=== PATIENT | female | born 1965 | race Caucasian/White ===

== ENCOUNTER → 2018-05-23 | Outpatient (CLI) | payer BC ==
--- NOTE | 2018-05-26 14:59 | MM ---
Reason for exam: screening (asymptomatic). Last mammogram was performed 9 years and 6 months ago. Physical Findings: A clinical breast exam by your physician is recommended on an annual basis and results should be correlated with mammographic findings. MG Screening Mammo w CAD Bilateral CC and MLO view(s) were taken. Prior study comparison: November 09, 2008, bilateral digital screening mammogram. No significant changes when compared with prior studies. ASSESSMENT: Benign, BI-RAD 2 RECOMMENDATION: Routine screening mammogram of both breasts in 1 year.
== END | disposition home or self-care (01) ==
LOC: RADMAMWWP 08:03
PROVIDERS: ATTEND Family Medicine
DX: Z12.31 Encounter for screening mammogram for malignant neoplasm of breast (principal)
CPT/HCPCS: 77067

== ENCOUNTER → 2018-06-19 | Outpatient (CLI) | payer BC ==
--- NOTE | 2018-06-19 12:10 | CONS ---
CONSULTATION DATE OF SERVICE: 06/19/2019 This 53-year-old lady had been evaluated in the sleep center for possible obstructive sleep apnea-hypopnea syndrome. HISTORY OF PRESENT ILLNESS/SLEEP WAKE EVALUATION: Patient usual sleep schedule from 11 p.m. to 6:30 a.m. She goes out of bed around 6:45 a.m. No problem with falling asleep although she has TV set in bedroom. She sleeps with her with snoring and witnessed episodes of stopped breathing during the sleep. She wakes up with grinding teeth, symptoms of restless legs. She wakes up from sleep 2 times with nocturia. No history of hypnagogic hallucinations, sleep paralysis or cataplexy. Recently patient lost about 15 pounds of weight and at that time her snoring is less and she feels better during the day, but she still continued to feel some sleepiness. [place] Sleepiness Scale increased to 14 and she has taken nap at 7 p.m. PAST MEDICAL HISTORY: Positive for hypothyroidism, low vitamin D level, allergy. PAST SURGICAL HISTORY: Right knee ACL, surgery in 1996. MEDICATIONS: Levothyroxine and vitamin D. SOCIAL HISTORY: Negative for smoking. Alcohol consumption rarely. FAMILY HISTORY: Hypertension, heart problems, stroke, sinus headaches, sleep apnea, snoring, cancer, liver problems, diabetes, thyroid problems, restless legs. REVIEW OF SYSTEMS: Awakenings from sleep, sleepiness during the day. PHYSICAL EXAMINATION: GENERAL: A 53-year-old lady without distress. VITAL SIGNS: BP 149/79, HR 67, RR 16, height 5-1/2, weight 162.2, BMI 31.1, temperature 98.1, oxygen saturation room air 97%. HEENT: PERRLA, EOMI. Oropharynx moderately low position of soft palate. Some restriction of nasal breathing bilaterally. NECK: Supple, no JVD. Thyroid is not palpable. LUNGS: Clear to percussion and to auscultation. Good air exchange. No wheezing or rhonchi. HEART: S1, S2 regular. No murmurs, gallops, or rubs. ABDOMEN: Slightly obese. EXTREMITIES: No clubbing or cyanosis. RECONCILIATION ANALYST: Awake, alert, and oriented X3. Cranial nerves 2 to 7 intact. There is no fasciculation or atrophy. noted. No focal deficits observed. IMPRESSION: 1. Snoring, witnessed episodes of stopped breathing during the sleep, restriction of nasal breathing, sleepiness, possible obstructive sleep apnea-hypopnea syndrome. 2. Excessive daytime sleepiness. [place] Sleepiness Scale increased to 14. Differential diagnosis should include hypersomnia. 3. Obesity, body mass index 31.1. 4. Hypothyroidism. 5. Low vitamin D level. 6. Status post section x3. 7. Status post right knee surgery for ACL problems in 1996. 8. Allergy. 9. Some restriction of nasal breathing. PLAN: 1. Home sleep apnea test for evaluation of patient's breathing during the sleep. 2. Following plan after reviewing results of home sleep apnea test. If sleep study will be negative and the patient will continue to have symptoms of excessive daytime sleepiness, we may consider polysomnogram with following multiple sleep latency test. 3. Continue losing weight. 4. Sleep hygiene with regular time in bed for at least 7.5 hours. 5. No driving if feeling any sleepiness. Thank you very much for referring this patient for consultation. Sincerely, Dennis Shipman MD, PhD, FAASM Diplomat of [place] [employer] [place] [employer] Waiter/Waitress Room Service of [facility] [place] MMODL / IJN: [id number] /
== END | disposition home or self-care (01) ==
LOC: SLEEP 10:09
PROVIDERS: ATTEND Internal Medicine
DX: G47.30 Sleep apnea, unspecified (principal); G47.63 Sleep related bruxism; G25.81 Restless legs syndrome; R35.1 Nocturia; E66.9 Obesity, unspecified; E03.9 Hypothyroidism, unspecified; E88.89 Other specified metabolic disorders; Z91.048 Other nonmedicinal substance allergy status; Z68.31 Body mass index [BMI] 31.0-31.9, adult; Z98.890 Other specified postprocedural states; Z79.899 Other long term (current) drug therapy
CPT/HCPCS: 99211

== ENCOUNTER 2019-03-20 21:21 | Emergency (ER) | payer BC ==
[2019-03-20] MEDS ORDERED: SODIUM CHLORIDE 0.9% 500 ML 500 ML IV ONE (21:28)
[2019-03-20] MEDS ORDERED: MORPHINE SULFATE 2 MG/ML SYRINGE IVP STA (21:28)
[2019-03-20 21:57] LABS: Basophils % (A) 1 %; Eosinophils # (A) 0.1 k/uL (0-0.7); Eosinophils % (A) 2 %; HCT 35.8 % (34.0-46.0); HGB 11.2 gm/dL (11.4-16.0); Hypochromasia Slight; Lymphocytes % (A) 35 %; MCH 24.5 pg (25.0-35.0); MCHC 31.4 g/dL (31.0-37.0); MCV 78.1 fL (80.0-100.0); Mean Platelet Volume 7.5; Microcytosis Slight; Monocytes # (A) 0.4 k/uL (0-1.0); Monocytes % (A) 7 %; Neutrophils # (A) 2.9 k/uL (1.3-7.7); Neutrophils % (A) 51 %; Platelet Count 369 k/uL (150-450); RBC 4.59 m/uL (3.80-5.40); RDW 15.5 % (11.5-15.5); WBC 5.7 k/uL (3.8-10.6)
[2019-03-20 22:05] LABS: ALT 27 U/L (9-52); AST 22 U/L (14-36); Albumin 4.4 g/dL (3.5-5.0); Alkaline Phosphatase 102 U/L (38-126); Amylase 78 U/L (30-110); Anion Gap 9 mmol/L; Blood Urea Nitrogen 14 mg/dL (7-17); Calcium 9.7 mg/dL (8.4-10.2); Carbon Dioxide 25 mmol/L (22-30); Chloride 106 mmol/L (98-107); Glucose 83 mg/dL (74-99); Lipase 248 U/L (23-300); Potassium 4.1 mmol/L (3.5-5.1); Sodium 140 mmol/L (137-145); Total Bilirubin 0.5 mg/dL (0.2-1.3); Total Protein 8.1 g/dL (6.3-8.2)
[2019-03-20 22:08] LABS: Appearance,Urine Clear (Clear); Bilirubin,Urine Negative (Negative); Blood,Urine Negative (Negative); Color,Urine Light Yellow; Glucose,Urine (UA) Negative (Negative); Ketones,Urine Negative (Negative); Leukocyte Esterase,Urine Negative (Negative); Nitrite,Urine Negative (Negative); PH, Urine 5.5 (5.0-8.0); Protein,Urine Negative (Negative); Specific Gravity,Urine 1.006 (1.001-1.035); Urobilinogen,Urine <2.0 mg/dL (<2.0)
--- NOTE | 2019-03-20 22:49 | CT ---
EXAM: CT Abdomen and Pelvis With Intravenous Contrast CLINICAL HISTORY: ITS.REASON CT Reason: Pain TECHNIQUE: Axial computed tomography images of the abdomen and pelvis with intravenous contrast. CTDI is 20 mGy and DLP is 862 mGy-cm. This CT exam was performed using one or more of the following dose reduction techniques: automated exposure control, adjustment of the mA and/or kV according to patient size, and/or use of iterative reconstruction technique. COMPARISON: No relevant prior studies available. FINDINGS: Lung bases: No mass. No consolidation. ABDOMEN: Liver: Unremarkable. Gallbladder and bile ducts: Unremarkable. Pancreas: Unremarkable. Spleen: Unremarkable. Adrenals: Unremarkable. Kidneys and ureters: No hydronephrosis. Stomach and bowel: No bowel obstruction or bowel wall thickening. PELVIS: Appendix: No evidence of appendicitis. Bladder: Unremarkable. Reproductive: Enlarged and heterogeneous in appearance with a 5 cm exophytic mass. ABDOMEN and PELVIS: Intraperitoneal space: Unremarkable. Bones/joints: No acute fractures. Soft tissues: Unremarkable. Vasculature: No abdominal aortic aneurysm. Lymph nodes: No enlarged lymph nodes. IMPRESSION: No acute intra-abdominal process. Enlarged and heterogeneous uterus with exophytic 5 cm fibroid.
--- NOTE | 2019-03-20 23:32 | ED ---
Abdominal Pain HPI - General Source: patient Mode of arrival: ambulatory Limitations: no limitations <Lizy Vizcarra - Last Filed: 03/20/19 23:21> <Elizabeth Buchanan - Last Filed: 03/21/19 00:42> - General Chief Complaint: Abdominal Pain Stated Complaint: ABd Pain Time Seen by Provider: 03/20/19 21:28 - History of Present Illness Initial Comments: 54-year-old female presenting today for chief complaint of left lower quadrant pain 2 days. Patient states she has had intermittent pain in the left lower quadrant. Denies radiation. She states it usually began shortly after eating. Patient describes the pain as sharp and aching. Lasting for 20 minutes or more at a time. Patient states pain was more persistent today and presented for evaluation. Patient denies lower extremity pain, back pain dysuria urgency frequency. Patient states she still has menstruation monthly, last 03/12/19. Patient denies any numbness tingling or loss sensation of the lower extremities she denies any fever or chills night sweats diarrhea vomiting. Denies any melena hematochezia. Patient denies any abnormal vaginal bleeding. She denies any abnormal vaginal discharge. Patient denies any upper abdominal pain chest pain dyspnea dysuria or exertion nausea. Patient denies any recent weight loss. Remaining ROS (-). Upon arrival patient appears well. Nontoxic. Mild elevation of BP remaining VS within acceptable limits. (Lizy Vizcarra) - Related Data Home Medications Medication Instructions Recorded Confirmed Levothyroxine Sodium 137 mcg PO DAILY 03/20/19 03/20/19 Allergies Allergy/AdvReac Type Severity Reaction Status Date / Time No Known Allergies Allergy Verified 03/20/19 21:31 Review of Systems ROS Other: All systems not noted in ROS Statement are negative. <Lizy Vizcarra - Last Filed: 03/20/19 23:21> ROS Other: All systems not noted in ROS Statement are negative. <Elizabeth Buchanan - Last Filed: 03/21/19 00:42> ROS Statement: Those systems with pertinent positive or pertinent negative responses have been documented in the HPI. Past Medical History Past Medical History: No Reported History, Thyroid Disorder History of Any Multi-Drug Resistant Organisms: None Reported Past Surgical History: Section, Orthopedic Surgery Past Psychological History: No Psychological Hx Reported Smoking Status: Never smoker Past Alcohol Use History: Rare Past Drug Use History: None Reported <Lizy Vizcarra - Last Filed: 03/20/19 23:21> General Exam Limitations: no limitations <Lizy Vizcarra - Last Filed: 03/20/19 23:21> - General Exam Comments Initial Comments: General: The patient is awake and alert, in no distress, and does not appear acutely ill. Eye: +3 mm pupils are equal, round and reactive to light, extra-ocular move ments are intact. No nystagmus. There is normal conjunctiva bilaterally. No signs of icterus. Ears, nose, mouth and throat: There are moist mucous membranes and no oral lesions. Neck: The neck is supple, there is no tenderness or JVD. Cardiovascular: There is a regular rate and rhythm. No murmur, rub or gallop is appreciated. Respiratory: Lungs are clear to auscultation, respirations are non-labored, breath sounds are equal. No wheezes, stridor, rales, or rhonchi. Gastrointestinal: No noted diaphoresis, jaundice, pallor, protecting postures or squirming. Symmetrical pigmentation of abdomen without signs of inflammation, [scars], or striae. Umbilicus mildline, inverted without swelling. No dilated veins. Abdomen contour obese, no noted abdominal distention. No visible masses. No peristalsis, aortic pulsations, or ventral hernia. Bowel sounds audible in all 4 quadrants, unremarkable. No friction rubs or venous hums. No epigastic, hepatic or abdominal bruits. Patient tender to the left lower quadrant to both light and deep palpation. No distinct palpable masses. No rigidity no guarding no rebound tenderness. Liver edge, not palpable. Spleen edge, right and left kidney not palpable. Superior bladder margin non-tender. Special Testing: Negative [place], Rovsing, McBurney, Francis, cutaneous hyperesthesia. Iliopsoas and obturator tests negative bilaterally. Negative Heel Jar test. Digital rectal exam deferred. Negative ordonez turners or cullens sign Musculoskeletal: Normal ROM, no tenderness. Strength 5/5. Sensation intact. Pulses equal bilaterally 2+. Neurological: A&O x 3. CN II-XII intact, There are no obvious motor or sensory deficits. Coordination appears grossly intact. Speech is normal. Skin: Skin is warm and dry and no rashes or lesions are noted. Psychiatric: Cooperative, appropriate mood & affect, normal judgment. (Lizy Vizcarra) Course Vital Signs 03/20/19 21:22 Temperature 97.8 F Pulse Rate 70 Respiratory 18 Rate Blood Pressure 188/86 O2 Sat by Pulse 100 Oximetry Medical Decision Making - Lab Data Result diagrams: 03/20/19 21:43 03/20/19 21:43 <Lizy Vizcarra - Last Filed: 03/20/19 23:21> - Lab Data Result diagrams: 03/20/19 21:43 03/20/19 21:43 <Elizabeth Buchanan - Last Filed: 03/21/19 00:42> - Medical Decision Making Appearing 54-year-old female presenting today for chief complaint of left lower abdominal pain. Patient states this has been ongoing intermittently for the past 2 days. Patient recently completed menses 2018. Patient is unsure if this feels like pelvic or abdominal pain. Patient states it does have a pattern with eating. Conservative for diverticulitis CT with contrast of the abdomen a nd pelvis is obtained revealing no acute abnormality. There was noted exophytic uterine fibroid 5 cm. At this time repeat abdominal exam was performed. Pain still present. Improvement with morphine. Pt appears more comfortable. Ultrasound was ordered. I discussed the case attending provider Dr. Buchanan as I'm signing outpatient upon shift change. She is aware of presenting illness, current exam findings, and CT findings will continue care. (Lizy Vizcarra) Patient care was signed out to be by Lizy VALENTIN - she had presented with left lower quadrant abdominal pain computed tomography scan revealed an old exophytic fibroid so a ultrasound was ordered at the time of sign out ultrasound was pending. Ultrasound again confirmed a 5.7 cm exophytic fibroid. (Elizabeth Buchanan) - Lab Data Lab Results 03/20/19 03/20/19 03/20/19 Range/Units 21:43 21:43 21:43 WBC 5.7 (3.8-10.6) k/uL RBC 4.59 (3.80-5.40) m/uL Hgb 11.2 L (11.4-16.0) gm/dL Hct 35.8 (34.0-46.0) % MCV 78.1 L (80.0-100.0) fL MCH 24.5 L (25.0-35.0) pg MCHC 31.4 (31.0-37.0) g/dL RDW 15.5 (11.5-15.5) % Plt Count 369 (150-450) k/uL Neutrophils % 51 % Lymphocytes % 35 % Monocytes % 7 % Eosinophils % 2 % Basophils % 1 % Neutrophils # 2.9 (1.3-7.7) k/uL Lymphocytes # 2.0 (1.0-4.8) k/uL Monocytes # 0.4 (0-1.0) k/uL Eosinophils # 0.1 (0-0.7) k/uL Basophils # 0.0 (0-0.2) k/uL Hypochromasia Slight Microcytosis Slight Sodium 140 (137-145) mmol/L Potassium 4.1 (3.5-5.1) mmol/L Chloride 106 (98-107) mmol/L Carbon Dioxide 25 (22-30) mmol/L Anion Gap 9 mmol/L BUN 14 (7-17) mg/dL Creatinine 0.68 (0.52-1.04) mg/dL Est GFR (CKD-EPI)AfAm >90 (>60 ml/min/1.73 sqM) Est GFR (CKD-EPI)NonAf >90 (>60 ml/min/1.73 sqM) Glucose 83 (74-99) mg/dL Calcium 9.7 (8.4-10.2) mg/dL Total Bilirubin 0.5 (0.2-1.3) mg/dL AST 22 (14-36) U/L ALT 27 (9-52) U/L Alkaline Phosphatase 102 (38-126) U/L Total Protein 8.1 (6.3-8.2) g/dL Albumin 4.4 (3.5-5.0) g/dL Amylase 78 (30-110) U/L Lipase 248 (23-300) U/L Urine Color Light Yellow Urine Appearance Clear (Clear) Urine pH 5.5 (5.0-8.0) Ur Specific [place] 1.006 (1.001-1.035) Urine Protein Negative (Negative) Urine Glucose (UA) Negative (Negative) Urine Ketones Negative (Negative) Urine Blood Negative (Negative) Urine Nitrite Negative (Negative) Urine Bilirubin Negative (Negative) Urine Urobilinogen <2.0 (<2.0) mg/dL Ur Leukocyte Esterase Negative (Negative) Disposition <Lizy Vizcarra - Last Filed: 03/20/19 23:21> Is patient prescribed a controlled substance at d/c from ED?: No <Elizabeth Buchanan P - Last Filed: 03/21/19 00:42> Clinical Impression: Uterine fibroid Disposition: HOME SELF-CARE Condition: Stable Instructions (If sedation given, give patient instructions): Pelvic Pain in Women (ED) Referrals: Jessica Philip MD [Primary Care Provider] - 1-2 days Janet Morin MD [STAFF PHYSICIAN] - 1-2 days
--- NOTE | 2019-03-21 00:15 | US ---
EXAM: US Pelvis, Transvaginal CLINICAL HISTORY: ITS.REASON US Reason: Pain TECHNIQUE: Real-time transvaginal pelvic ultrasound (complete) with image documentation. Transvaginal imaging was used for better evaluation of the endometrium and adnexa. COMPARISON: CT abdomen 03/20/19 FINDINGS: Uterus/cervix: Multiple fibroids (incompletely characterized), largest measuring up to 5.7 cm in the upper right portion. Multiple nabothian cysts. Normal endometrial stripe thickness. Right ovary: No mass. Normal blood flow. Left ovary: No mass. Normal blood flow. Free fluid: No free fluid. IMPRESSION: Fibroid uterus with exophytic 5.7 cm fibroid as seen on the CT.
[2019-03-21 01:02] VITALS: BP 136/72; PULSE 63; RESP 16; TEMP 98.5
== END 2019-03-21 01:02 | disposition home or self-care (01) ==
LOC: EC 21:21
DX: D25.9 Leiomyoma of uterus, unspecified (principal); R03.0 Elevated blood-pressure reading, without diagnosis of hypertension; E07.9 Disorder of thyroid, unspecified; Z79.890 Hormone replacement therapy
CPT/HCPCS: 36415; 80053; 82150; 83690; 85025; 81003; 93975; 76856; 76830; 74177; 99284; 96374; 96361; J2270; Q9967

== ENCOUNTER → 2019-08-13 | Outpatient (CLI) | payer BC ==
--- NOTE | 2019-08-13 20:08 | PN ---
PROGRESS NOTE DATE OF SERVICE: 08/13/2019 54-year-old lady has been followed in Sleep Center for treatment of obstructive sleep apnea-hypopnea syndrome. Recently patient had home sleep apnea test which showed apnea-hypopnea index 49.1 with oxygen desaturation to 69%. The patient had CPAP titration and her respiration was normalized on CPAP. Subsequently, she received CPAP unit today. Today her visit after she received CPAP equipment. The patient is able to use CPAP equipment every night without significant problems related to mask fitting, pressure and humidification. [place] Sleepiness Scale today is 8. I checked her CPAP unit, range of the pressure 5-10 with average pressure 9.7 cm of water usage is 23/30 nights and 22/30 nights for more than 4 hours with average usage 5.9 hours. Leak is 6 L/minute, which is absolutely normal. Apnea-hypopnea index reading only 1.9, which is perfect. MEDICATIONS: Levothyroxine, vitamin D. PHYSICAL EXAM: Patient in no distress. BP 115/67, HR 77, RR 16, weight 171, temp 97.8. Oropharynx: Low position of soft palate. Mallampati 4. Neck Supple, no JVD. Thyroid is not palpable. LUNGS Clear to percussion and to auscultation. Good air exchange. No wheezing or rhonchi. HEART S1, S2 regular. No murmurs, gallops, or rubs. ABDOMEN: Slightly obese. Soft and nontender. Bowel sounds are present. No organomegaly appreciated. EXTREMITIES No clubbing or cyanosis. BREASTFEEDING PROGRAM COORDINATOR Awake, alert, and oriented X3. Cranial nerves 2 to 7 intact. There is no fasciculation or atrophy. noted. No focal deficits observed. IMPRESSION: 1. Severe obstructive sleep apnea-hypopnea syndrome; apnea-hypopnea index 49.1 with oxygen desaturation to 69% on full control with CPAP. The patient demonstrated great compliance with treatment benefitting from treatment. 2. Obesity. 3. Hypothyroidism. 4. Low level of vitamin D. 5. Status post . 6. Status post right knee surgery for ACL in 1996. 7. Allergy. 8. Restriction of nasal breathing. PLAN: 1. Patient will continue to use CPAP equipment every night for the whole night. 2. Watching and losing weight. 3. Sleep hygiene with regular time in bed for at least 7-1/2 hours. 4. No driving if feeling sleepiness. 5. I will maintain all necessary prescriptions for CPAP supplies including mask, tube filters. Presently patient on Airfit N30 and has heated tube. Thank you very much for allowing me to participate in management of your patient. Sincerely, Dennis Shipman MD, PhD, FAASM Diplomat of [place] [employer] [place] [employer] Facsimile Operator of [facility] [place] MMODL / IJN: [id number] /
== END | disposition home or self-care (01) ==
LOC: SLEEP 15:13
PROVIDERS: ATTEND Internal Medicine
DX: G47.33 Obstructive sleep apnea (adult) (pediatric) (principal); E66.9 Obesity, unspecified; E03.9 Hypothyroidism, unspecified; E55.9 Vitamin D deficiency, unspecified; Z96.651 Presence of right artificial knee joint; Z98.890 Other specified postprocedural states; T78.40XA Allergy, unspecified, initial encounter; J98.8 Other specified respiratory disorders; Z99.89 Dependence on other enabling machines and devices; Z79.899 Other long term (current) drug therapy

== ENCOUNTER → 2021-03-16 | Outpatient (CLI) | payer BC ==
--- NOTE | 2021-03-20 13:59 | MM ---
Reason for exam: screening (asymptomatic). Last mammogram was performed 2 years and 10 months ago. Physical Findings: A clinical breast exam by your physician is recommended on an annual basis and results should be correlated with mammographic findings. MG 3D Screening Mammo W/Cad Bilateral CC and MLO view(s) were taken. Prior study comparison: May 23, 2018, bilateral MG screening mammo w CAD. The breast tissue is heterogeneously dense. This may lower the sensitivity of mammography. No significant changes when compared with prior studies. ASSESSMENT: Negative, BI-RAD 1 RECOMMENDATION: Routine screening mammogram of both breasts in 1 year. Patient should continue monthly self breast exams. A negative report should not preclude additional follow up of suspicious palpable abnormalities.
== END | disposition home or self-care (01) ==
LOC: RADMAMWWP 13:31
PROVIDERS: ATTEND Family Medicine
DX: Z12.31 Encounter for screening mammogram for malignant neoplasm of breast (principal)
CPT/HCPCS: 77063; 77067

== ENCOUNTER 2021-12-14 08:53 | Day surgery (SDC) | payer BC ==
[2021-12-12 10:22] VITALS: BMI 34.3
[~2021-12-14 08:53] MED LIST: LACTATED RINGERS 1,000 ML IV SCH; LIDOCAINE 1% (10MG/ML) FOR IV START INTRADERMA PRN
[2021-12-14 09:24] VITALS: TEMP 97.6
[2021-12-14] MEDS ORDERED: ONDANSETRON 4 MG/2 ML VIAL ONE (09:38)
[2021-12-14] MEDS ORDERED: ONDANSETRON 4 MG/2 ML VIAL IVP ONE (09:45)
[2021-12-14] MEDS ORDERED: PROPOFOL 10 MG/ML 20 ML VIAL IV ONE (10:25)
[2021-12-14] MEDS ORDERED: LIDOCAINE 1% INJ 10MG/ML (20 ML MDV) ONE (10:25)
--- NOTE | 2021-12-14 10:28 | P.GSHP ---
History of Present Illness H&P Date: 12/14/21 This is a 56-year-old female who had a recent positivecolon Guard test. Patient presents today for colonoscopy Past Medical History Past Medical History: Thyroid Disorder Additional Past Medical History / Comment(s): covid 10/22. pos.cologard History of Any Multi-Drug Resistant Organisms: None Reported Past Surgical History: Section, Hysterectomy, Orthopedic Surgery Additional Past Surgical History / Comment(s): arthroscopy rt knee. c/s x3 Past Anesthesia/Blood Transfusion Reactions: Motion Sickness, Postoperative Nausea & Vomiting (PONV) Smoking Status: Never smoker Medications and Allergies Home Medications Medication Instructions Recorded Confirmed Type Levothyroxine Sodium 137 mcg PO DAILY 03/20/19 12/14/21 History Allergies Allergy/AdvReac Type Severity Reaction Status Date / Time No Known Allergies Allergy Verified 12/14/21 09:15 Surgical - Exam Vital Signs Temp Pulse Resp BP Pulse Ox 97.6 F 97 16 164/79 97 12/14/21 09:23 12/14/21 09:23 12/14/21 09:23 12/14/21 09:23 12/14/21 09:23 - General well developed, well nourished, no distress - Eyes PERRL - ENT normal pinna - Neck no masses - Respiratory normal expansion - Cardiovascular Rhythm: regular - Abdomen Abdomen: soft, non tender Assessment and Plan Assessment: Positivecolon Guard test. We'll perform colonoscopy
--- NOTE | 2021-12-14 10:39 | P.OP ---
Date of Procedure: 12/14/21 Preoperative Diagnosis: Positivecolon . Guard test Postoperative Diagnosis: Normal colonoscopy Procedure(s) Performed: Colonoscopy Anesthesia: MAC Surgeon: Stephan Hung Pathology: none sent Condition: stable Description of Procedure: The patient's placed on the endoscopy table in the lateral position. She received IV sedation. Digital rectal exam was performed. This revealed no abnormalities. Flexible colonoscope was then placed patient anus and passed throughout the entire colon. Ileocecal valve was visualized. The cecum, ascending and transverse colon appeared normal. Descending and sigmoid colon appeared normal. The scope was brought back the rectum this appeared scope was then withdrawn for patient. There were no polyps seen.
[2021-12-14 11:01] VITALS: BP 124/75; PULSE 58; RESP 18
== END 2021-12-14 11:29 | disposition home or self-care (01) ==
LOC: ORWHC2ENDO 08:53
PROVIDERS: ATTEND Surgery
DX: R19.5 Other fecal abnormalities (principal); E07.9 Disorder of thyroid, unspecified; Z86.16 Personal history of COVID-19; Z79.890 Hormone replacement therapy; Z98.891 History of uterine scar from previous surgery; Z90.710 Acquired absence of both cervix and uterus; Z98.890 Other specified postprocedural states
CPT/HCPCS: 45378; J2405; J2001; J2704

== ENCOUNTER → 2022-06-06 | Outpatient (CLI) | payer BC ==
--- NOTE | 2022-06-06 16:55 | P.PN ---
Subjective DATE: 06/06/2022 FOLLOW UP VISIT. Patient with obstructive sleep apnea hypopnea syndrome return to sleep center for follow-up visit. Patient is using PAP equipment every night for the whole night, getting PAP supplies in time. The patient does not have significant problems with the mask, PAP unit and humidification. [place] sleepiness scale is 12. I checked PAP unit. PAP unit pressure 5-10 cm H2O. Usage is 90 % for more then 4 hours, average 5 hours per night. Leak is 17 l/m, which is in acceptable range. Apnea Hypopnea Index is 1.7, which is normal. MEDICATIONS:1. Levothyroxine 130 g once a day During physical exam: GENERAL: A pleasant patient without any distress. VITAL SIGNS: BP 149/87, HR 91, RR 18 , weight 175, temperature 97.6. Height 4 foot 11 inches, body mass index 35.3, oxygen saturation at room air 98% . HEENT: PERRLA, EOMI.low position of soft palate, Mallapati for . NECK: Supple. No JVD. LUNGS: Clear to percussion and to auscultation. Good air exchange. No wheezing or rhonchi. HEART: S1, S2 regular. ABDOMEN: Soft and nontender. Slightly obese EXTREMITIES: No clubbing or cyanosis. RIGHT OF WAY SUPERVISOR: Awake, alert, and oriented x3. No focal deficit. Impressions: 1. Obstructive sleep apnea-hypopnea syndrome. Patient demonstrated great compliance with treatment, benefiting from treatment. 2. Hypothyroidism. 3. History of low vitamin D level. 4. Status post . 5. Status post right knee surgery. 6. ALLERGY. 7. Restriction of nasal breathing. Plan: 1. Continue using PAP equipment every night for the whole night. 2. To change air filter at least 1-2 times per month. 3. PAP unit should stay lower then position of the head. 4. Advised patient to remove all remaining water from humidifier canister daily and make it dry after each usage. Refill canister with fresh distilled water before each usage. 5. Sleep hygiene with regular time in bed for at least 8 hours. 6. Precautions related to driving. No driving if feel any sleepiness. 7. I will maintain prescription for PAP supplies including mask, tube, filters. 8. Follow up visit in 6 months or earlier if patient has any problems. 9. Watching weight. Thank you very much for allowing me to participate in the management of your patient. Dennis Shipman MD, PhD, FAASM. Diplomat of [place] [employer], Sleep Medicine Board by [place] [employer] Business Development of [facility] [place]
== END ==
LOC: SLEEP 16:23
PROVIDERS: ATTEND Internal Medicine
DX: G47.33 Obstructive sleep apnea (adult) (pediatric) (principal); E03.9 Hypothyroidism, unspecified; Z87.59 Personal history of other complications of pregnancy, childbirth and the puerperium; Z98.890 Other specified postprocedural states; T78.40XA Allergy, unspecified, initial encounter; R06.89 Other abnormalities of breathing; Z99.89 Dependence on other enabling machines and devices; Z79.890 Hormone replacement therapy; Z86.39 Personal history of other endocrine, nutritional and metabolic disease
CPT/HCPCS: 99212

== ENCOUNTER → 2022-12-19 | Outpatient (CLI) | payer BC ==
--- NOTE | 2022-12-19 16:54 | P.PN ---
Subjective DATE: 12/19/2022 FOLLOW UP VISIT. Patient with obstructive sleep apnea hypopnea syndrome return to sleep center for follow-up visit. Information from previous visit have been reviewed. Patient is using PAP equipment every night for the whole night, getting PAP supplies in time. The patient does not have significant problems with the mask, PAP unit and humidification. [place] sleepiness scale is increased to 14. I checked information from PAP unit. PAP unit pressure 5-10, average 9.9 cm H2O. Usage is 80% and 70 % for more then 4 hours, average 5.25 hours per night. Leak is 11.4 l/m, which is in acceptable range. Apnea Hypopnea Index is 0.9, which is normal. MEDICATIONS:1. Synthroid 137 g once a day During physical exam: GENERAL: A pleasant patient without any distress. VITAL SIGNS: BP 175/92, HR [], RR 18, weight 175.6, temperature 98.4, oxygen saturation at room air 99 % . HEENT: PERRLA, EOMI.low position of soft palate, Mallapati 4 . NECK: Supple. No JVD. LUNGS: Clear to percussion and to auscultation. Good air exchange. No wheezing or rhonchi. HEART: S1, S2 regular. ABDOMEN: Soft and nontender. Slightly obese EXTREMITIES: No clubbing or cyanosis. COST ACCOUNTING MANAGER: Awake, alert, and oriented x3. No focal deficit. Impressions: 1. Obstructive sleep apnea-hypopnea syndrome. Patient demonstrated great compliance with treatment, benefiting from treatment. 2. Hypothyroidism. 3. ALLERGY. 4. []. status post right knee surgery 5. [].Status post Plan 1. Continue using PAP equipment every night for the whole night. 2. To change air filter at least 1-2 times per month. 3. PAP unit should stay lower then position of the head. 4. Advised patient to remove all remaining water from humidifier canister daily and make it dry after each usage. Refill canister with fresh distilled water before each usage. 5. Sleep hygiene with regular time in bed for at least 8 hours. 6. Precautions related to driving. No driving if feel any sleepiness. 7. I will maintain prescription for PAP supplies including mask, tube, filters. 8. Watching weight. 9. Follow up visit in 6 months or earlier if patient has any problems. Thank you very much for allowing me to participate in the management of your patient. Dennis Shipman MD, PhD, FAASM. Diplomat of [employer], Sleep Medicine Board by [employer] Rug Drying Machine Operator of [facility] [place]
== END ==
LOC: SLEEP 15:58
PROVIDERS: ATTEND Internal Medicine
DX: G47.33 Obstructive sleep apnea (adult) (pediatric) (principal); E03.9 Hypothyroidism, unspecified; Z96.651 Presence of right artificial knee joint; O34.219 Maternal care for unspecified type scar from previous cesarean delivery; Z79.890 Hormone replacement therapy; Z99.89 Dependence on other enabling machines and devices
CPT/HCPCS: 99212

== ENCOUNTER → 2023-07-24 | Outpatient (CLI) | payer BC ==
--- NOTE | 2023-07-24 17:03 | P.PN ---
Subjective DATE: 07/24/2023 FOLLOW UP VISIT. Patient with obstructive sleep apnea hypopnea syndrome return to sleep center for follow-up visit. Information from previous visit have been reviewed. Patient is using PAP equipment every night for the whole night, getting PAP supplies in time. The patient does not have significant problems with the mask, PAP unit and humidification. [place] sleepiness scale is increased to 14. I checked information from PAP unit. PAP unit pressure 5-10, average 9.8 cm H2O. Usage is 83 % for more then 4 hours, average 4.75 hours per night. Leak is 8.9 l/m, which is in acceptable range. Apnea Hypopnea Index is 1.5, which is normal. MEDICATIONS:1. Losartan 50 mg once a day 2. Synthroid 137 micrograms once a day During physical exam: GENERAL: A pleasant patient without any distress. VITAL SIGNS: BP 148/81, HR 73, RR 12 , weight 174.0, temperature 98.1, oxygen saturation at room air 99 % . HEENT: PERRLA, EOMI.low position of soft palate, Mallapati 4 . NECK: Supple. No JVD. LUNGS: Clear to percussion and to auscultation. Good air exchange. No wheezing or rhonchi. HEART: S1, S2 regular. ABDOMEN: Soft and nontender.[] EXTREMITIES: No clubbing or cyanosis. SHOVELER: Awake, alert, and oriented x3. No focal deficit. Impressions: 1. Obstructive sleep apnea-hypopnea syndrome. Patient demonstrated good compliance with treatment, benefiting from treatment. 2. Hypothyroidism. 3. ALLERGY. 4. Status post right knee surgery. 5. Status post . 6. Mild obesity BMI 34.5. 7. Hypertension Plan: 1. Continue using PAP equipment every night for the whole night. 2. To change air filter at least 1-2 times per month. 3. PAP unit should stay lower then position of the head. 4. Advised patient to remove all remaining water from humidifier canister daily and make it dry after each usage. Refill canister with fresh distilled water b efore each usage. 5. Sleep hygiene with regular time in bed for at least 8 hours. 6. Precautions related to driving. No driving if feel any sleepiness. 7. I will maintain prescription for PAP supplies including mask, tube, filters. 8. Follow up visit in 6 months or earlier if patient has any problems. 9. Watching and losing weight. Thank you very much for allowing me to participate in the management of your patient. Dennis Shipman MD, PhD, FAASM. Diplomat of [place] [employer], Sleep Medicine Board by [place] Marketing Research Coordinator of [facility] [place]
== END ==
LOC: 3 N SLEEP 16:14
PROVIDERS: ATTEND Internal Medicine
DX: G47.33 Obstructive sleep apnea (adult) (pediatric) (principal); E66.9 Obesity, unspecified; E03.9 Hypothyroidism, unspecified; I10 Essential (primary) hypertension; Z79.890 Hormone replacement therapy; Z79.899 Other long term (current) drug therapy; Z98.890 Other specified postprocedural states; Z99.89 Dependence on other enabling machines and devices; Z68.35 Body mass index [BMI] 35.0-35.9, adult
CPT/HCPCS: 99212